=== PATIENT | male | born 2005 | race Hispanic/Latino ===

== ENCOUNTER 2023-05-04 11:56 | Emergency (ER) | payer OTHER ==
[~2023-05-04] VITALS: Ht 170.2 cm; Wt 87.5 kg
[2023-05-04 12:30] VITALS: BP 153/97; PULSE 100; RESP 18
== END 2023-05-04 19:41 | disposition home or self-care (01) ==
LOC: EDH 11:56
DX: A60.00 Herpesviral infection of urogenital system, unspecified (principal); Z20.2 Contact with and (suspected) exposure to infections with a predominantly sexual mode of transmission
CPT/HCPCS: 36415; 86592; 87486; 87797